=== PATIENT | female | born 1975 | race African-American/Black ===

== ENCOUNTER 2017-06-13 14:57 | Emergency (ER) | payer BC ==
[2017-06-13] MEDS ORDERED: SODIUM CHLORIDE 0.9% 1000 ML INFUS.BAG IV ONE (15:15)
[2017-06-13] MEDS ORDERED: DEXAMETHASONE SOD PHOSPHATE 20 MG/5 ML VIAL IVPB ONE (15:15)
[2017-06-13] MEDS ORDERED: ACETAMINOPHEN 325 MG TABLET (FP) PO ONE (15:16)
[2017-06-13 15:23] VITALS: BP 150/93; PULSE 86; TEMP 98.8; BMI 32.5
--- NOTE | 2017-06-13 15:34 | PDOC ---
History of Present Illness - General History Source: Patient Exam Limitations: No Limitations - History of Present Illness Initial Comments: 06/13/17 16:02 The patient is a 41-year-old female, with hx of chronic neck pain for which she sees pain specialist Dr. Willard. She is on gabapentin and percocet at home. She also has a hx of sinusitis and recently ran out of her nasal spray. Pt is experiencing a frontal headache between her eyes and blurred vision. Pt has not seen her PCP because she is looking for a new doctor. She denies any fever, chills, nausea, vomiting, diarrhea, or abdominal pain. <Elisa Mccormick - Last Filed: 06/13/17 17:19> <Kassandra Bazzi - Last Filed: 06/13/17 17:25> - General Chief Complaint: Pain Stated Complaint: While in L Time Seen by Provider: 06/13/17 15:14 Past History <Elisa Mccormick - Last Filed: 06/13/17 17:19> - Past Medical History COPD: No Other medical history: CERVICAL SPINE DISC PROBLEMS - Surgical History Abdominal Surgery: Yes (LAP BAND) - Suicide/Smoking/Psychosocial Hx Smoking Status: Yes Smoking History: Current every day smoker Years of Tobacco Use: 20 Number of Cigarettes Smoked Daily: 10 Cigars Per Day: 0 Information on smoking cessation initiated: Yes 'Breaking Loose' booklet given: 06/13/17 Hx Alcohol Use: Yes Drug/Substance Use Hx: No Substance Use Type: Alcohol <Kassandra Bazzi - Last Filed: 06/13/17 17:25> - Past Medical History Allergies/Adverse Reactions: Allergies Allergy/AdvReac Type Severity Reaction Status Date / Time No Known Allergies Allergy Verified 06/13/17 14:59 Home Medications: Ambulatory Orders Buprenorphine HCl [Belbuca] 75 mcg BC PRN 06/13/17 Fluticasone Prop 0.05% Nasal [Flonase -] 1 spray NS DAILY #1 bot 06/13/17 Gabapentin 300 mg PO BID 06/13/17 Ibuprofen [Motrin -] 600 mg PO TID #90 tablet 06/13/17 Oxycodone HCl/Acetaminophen [Percocet 10-325 mg Tablet] 10 mg PO BID 06/13/17 Review of Systems - Review of Systems Able to Perform ROS?: Yes Comments:: 06/13/17 16:03 GENERAL/CONSTITUTIONAL: No fever or chills. No weakness. HEAD, EYES, EARS, NOSE AND THROAT: (+)blurred vision. Sinus pain. No ear pain or discharge. No sore throat. CARDIOVASCULAR: No chest pain or shortness of breath. RESPIRATORY: No cough, wheezing, or hemoptysis. GASTROINTESTINAL: No nausea, vomiting, diarrhea or constipation. GENITOURINARY: No dysuria, frequency, or change in urination. MUSCULOSKELETAL: No joint or muscle swelling or pain. No neck or back pain. SKIN: No rash NEUROLOGIC: (+)frontal headache. No vertigo, loss of consciousness, or change in strength/sensation. ENDOCRINE: No increased thirst. No abnormal weight change. HEMATOLOGIC/LYMPHATIC: No anemia, easy bleeding, or history of blood clots. ALLERGIC/IMMUNOLOGIC: No hives or skin allergy. <Elisa Mccormick - Last Filed: 06/13/17 17:19> *Physical Exam - Vital Signs Last Vital Signs Temp Pulse Resp BP Pulse Ox 98.8 F 86 20 150/93 06/13/17 14:59 06/13/17 14:59 06/13/17 14:59 06/13/17 14:59 - Physical Exam Comments: 06/13/17 16:04 GENERAL: Awake, alert, and fully oriented, in no acute distress HEAD: No signs of trauma EYES: PERRLA, EOMI, sclera anicteric, conjunctiva clear ENT: (+)sinus tenderness in the frontal region and bilateral turbinate enlargement. Posterior pharynx cobblestoning. Auricles normal inspection, nares patent. Moist mucosa. No midline cervical spine tenderness. NECK: Normal ROM, supple, no lymphadenopathy, JVD, or masses LUNGS: Breath sounds equal, clear to auscultation bilaterally. No wheezes, and no crackles HEART: Regular rate and rhythm, normal S1 and S2, no murmurs, rubs or gallops ABDOMEN: Soft, nontender, normoactive bowel sounds. No guarding, no rebound. No masses EXTREMITIES: Normal range of motion, no edema. No clubbing or cyanosis. No cords, erythema, or tenderness NEUROLOGICAL: Alert and oriented x 3. Moves all extremities. Face is symmetric. SKIN: Warm, Dry, normal turgor, no rashes or lesions noted <Elisa Mccormick - Last Filed: 06/13/17 17:19> - Vital Signs Last Vital Signs Temp Pulse Resp BP Pulse Ox 98.8 F 86 20 150/93 06/13/17 14:59 06/13/17 14:59 06/13/17 14:59 06/13/17 14:59 <Kassandra Bazzi - Last Filed: 06/13/17 17:25> Heart Score/ECG Review - ECG Intrepretation Comment:: 06/13/17 17:19 EKG was reviewed by Dr. Bazzi at 16:00. Impression: Normal sinus rhythm. <Elisa Mccormick - Last Filed: 06/13/17 17:19> ED Treatment Course - LABORATORY CBC & Chemistry Diagram: 06/13/17 15:38 06/13/17 15:38 - ADDITIONAL ORDERS Additional order review: Laboratory Results 06/13/17 15:38 Urine HCG, Qual Negative 06/13/17 15:38 RBC 4.41 MCV 93.1 MCHC 33.2 RDW 14.1 D MPV 9.3 Neutrophils % 47.7 Lymphocytes % 40.3 H Monocytes % 7.9 Eosinophils % 0.9 Basophils % 3.2 H - Medications Given in the ED: ED Medications Discontinued Medications Generic Name Dose Route Start Last Admin Trade Name Camq PRN Reason Stop Dose Admin Acetaminophen 650 mg 06/13/17 15:16 06/13/17 15:48 Tylenol - PO 06/13/17 15:17 650 mg ONCE ONE Administration Dexamethasone Sodium Phosphate 10 mg 06/13/17 15:15 06/13/17 15:48 Decadron Injection - IVPB 06/13/17 15:16 10 mg ONCE ONE Administration Sodium Chloride 1,000 ml 06/13/17 15:15 06/13/17 15:47 Normal Saline - IV 06/13/17 15:16 1,000 ml ONCE ONE Administration <Elisa Mccormick - Last Filed: 06/13/17 17:19> - LABORATORY CBC & Chemistry Diagram: 06/13/17 15:38 06/13/17 15:38 - RADIOLOGY Radiology Studies Ordered: Category Date Time Status HEAD CT WITHOUT CONTRAST [CT] Stat CT Scan 06/13/17 15:15 Ordered <Kassandra Bazzi - Last Filed: 06/13/17 17:25> Medical Decision Making - Medical Decision Making 06/13/17 15:30 41-year-old female history of chronic neck/upper back pain following an injury 2 years ago currently on Percocets and gabapentin at home for chronic pain, here today complaining of a frontal headache patient states she has had headaches in the past however this one is different describes a frontal pressure -like headache that started 4 days ago denies nausea vomiting no focal weakness however describes generalized weakness also describes a feeling of mild blurry vision and a sense of dizziness or lightheadedness no fever no chills no chest pain shortness of breath. Has been on Flonase in the past for sinusitis but ran out of medication the middle of finding a new primary care doctor. Physical exam she is alert no acute distress does have noted frontal sinus tenderness to palpation, nasal turbinate enlargement, posterior pharynx cobblestoning no midline spinal tenderness no meningismus no photophobia. Cardiac and lung exam is unremarkable. Neurological exam is normal pain O 35 out of 5 strength throughout he is normal X Differential diagnosis sinusitis, migraine, anemia, tension headache, electrolyte abnormality., Plan: CT had, CBC, lites, UCG. We'll treat with Decadron, Reglan, IV fluids and reassess will likely require outpatient treatment for sinusitis which may alleviate some of her pain follow-up with a new primary care doctor <Kassandra Bazzi - Last Filed: 06/13/17 17:25> *DC/Admit/Observation/Transfer - Attestations Scribe Attestion: 06/13/17 16:25 Documentation prepared by Elisa Mccormick, acting as medical receptionist medical assistant for Kassandra Bazzi MD. <Elisa Mccormick - Last Filed: 06/13/17 17:19> <Kassandra Bazzi - Last Filed: 06/13/17 17:25> Diagnosis at time of Disposition: Sinus headache - Discharge Dispostion Disposition: HOME Condition at time of disposition: Improved - Prescriptions Prescriptions: Fluticasone Prop 0.05% Nasal [Flonase -] 1 spray NS DAILY #1 bot Ibuprofen [Motrin -] 600 mg PO TID #90 tablet - Referrals Referrals: Ronen Mills MD [Staff Physician] - - Patient Instructions Printed Discharge Instructions: Sinus Headache Additional Instructions: You should use Flonase nasal spray 1 spray each nostril daily. Prescription has been sent your pharmacy for this. He can take Motrin 600 mg every 8 hours as needed for pain. Drink plenty of fluids. He should also use a decongestant such as Sudafed or Claritin to help with ALLERGIC sinusitis. Follow-up with a ear nose and throat doctor referral information for Dr. Mills. Please call to schedule a follow-up appointment. He should follow-up with your primary doctor regarding repeat pressure check. Your labs were normal today as was your CAT scan of your head. Follow-up with your pain management doctor for management of other chronic back and neck pain.
[2017-06-13 15:41] LABS: MCH 30.9 pg (25.7-33.7); MCHC 33.2 g/dl (32.0-36.0); MEAN CELL VOLUME 93.1 fl (80-96); WHITE BLOOD COUNT 5.7 K/mm3 (4.0-10.8)
[2017-06-13] MEDS ORDERED: ACETAMINOPHEN 325 MG TABLET (FP) ONE (15:41)
[2017-06-13] MEDS ORDERED: DEXAMETHASONE SOD PHOSPHATE 10 MG/1 ML VIAL ONE (15:42)
[2017-06-13 15:49] LABS: BASOPHIL 3.2 % (0-2.0); EOSINOPHIL 0.9 % (0-4.5); MEAN PLT VOLUME 9.3 fl (7.5-11.1); NEUTROPHILS 47.7 % (42.8-82.8); PLATELET COUNT 293 K/MM3 (134-434); RDW 14.1 % (11.6-15.6)
[2017-06-13 15:59] LABS: ALBUMIN 3.8 g/dl (3.5-5.0); ALK PHOS 53 U/L (32-92); ANION GAP 7 (8-16); BILIRUBIN,TOTAL 0.7 mg/dl (0.2-1.0); CALCIUM 8.8 mg/dl (8.4-10.2); CO2 30 mmol/L (22-28); CREATININE 0.7 mg/dl (0.6-1.3); GLUCOSE,RANDOM 108 mg/dl (74-106); SGOT/AST 17 U/L (10-42); SGPT/ALT 14 U/L (10-40); TOT PROT 7.1 g/dl (6.4-8.3)
[2017-06-13 16:47] LABS: PH,URINE 5.5 (4.5-8); URINE APPEARANCE Clear; URINE BILIRUBIN Negative (NEGATIVE); URINE GLUCOSE (UA) Negative (NEGATIVE); URINE KETONE Trace (NEGATIVE); URINE LEUK ESTERASE Negative (NEGATIVE); URINE NITRITE Negative (NEGATIVE); URINE PROTEIN Negative (NEGATIVE); URINE UROBILINOGEN 0.2 (0.2-1.0)
[2017-06-13 16:50] LABS: URINE BLOOD Trace-lysed (NEGATIVE); URINE COLOR YELLOW
[2017-06-13 21:52] LABS: URINE BACTERIA FEW /hpf (NEGATIVE); URINE WBC 0-2 (0-5)
--- NOTE | 2017-06-14 20:22 | EKG ---
Test Reason : Blood Pressure : / mmHG Vent. Rate : 075 BPM Atrial Rate : 075 BPM P-R Int : 152 ms QRS Dur : 078 ms QT Int : 428 ms P-R-T Axes : 063 023 033 degrees QTc Int : 477 ms NORMAL SINUS RHYTHM NORMAL ECG NO PREVIOUS ECGS AVAILABLE Confirmed by IRMA DAMIAN MD ([id number]) on 06/14/2017 8:21:56 PM Referred By: MD PRESTON Confirmed By:IRMA DAMIAN MD
== END 2017-06-13 17:35 | disposition home or self-care (01) ==
LOC: FER 14:57
PROC: 3E0337Z Introduction of Electrolytic and Water Balance Substance into Peripheral Vein, Percutaneous Approach (ICD-10-PCS; principal; 2017-06-13)
PROC: 3E033GC Introduction of Other Therapeutic Substance into Peripheral Vein, Percutaneous Approach (ICD-10-PCS; 2017-06-13)
DX: G44.89 Other headache syndrome (principal); G89.29 Other chronic pain; M54.2 Cervicalgia; F17.210 Nicotine dependence, cigarettes, uncomplicated
CPT/HCPCS: 36415; 70450-TC; 80053; 81003; 81015; 84703; 85025; 93005; 99282-25